=== PATIENT | female | born 1990 | race Caucasian/White ===

== ENCOUNTER 2023-03-24 14:35 | Emergency (ER) | payer OTHER ==
[2023-03-24 15:08] VITALS: BMI 22.3
[2023-03-24] MEDS ORDERED: SODIUM CHLORIDE 0.9% 500 ML INFUS.BAG IV ONE (16:22)
[2023-03-24 16:26] LABS: EPI CELLS 10 /uL (0-25.1); HYALINE CASTS 1 /uL (0-3.1); PH,URINE 6.5 (5.0-8.0); URINE APPEARANCE CLEAR; URINE BACTERIA 63 /uL (0-1359); URINE BILIRUBIN NEGATIVE (NEGATIVE); URINE COLOR YELLOW; URINE GLUCOSE (UA) NEGATIVE (NEGATIVE); URINE KETONE NEGATIVE (NEGATIVE); URINE LEUK ESTERASE 2+ (NEGATIVE); URINE NITRITE NEGATIVE (NEGATIVE); URINE PROTEIN NEGATIVE (NEGATIVE); URINE RBC 101 /uL (0-23.9); URINE UROBILINOGEN 0.2 mg/dL (0.2-1.0); URINE WBC 99 /uL (0-25.8)
[2023-03-24 16:27] LABS: HCG,QUALITATIVE URINE Positive
[2023-03-24 17:12] LABS: BASO % 0.3 % (0-2.0); EOS % 1.9 % (0-4.5); HEMATOCRIT 36.8 % (32.4-45.2); LYMPH % 13.9 % (8-40); MCHC 32.7 g/dl (32.0-36.0); MEAN CELL VOLUME 85.7 fl (80-96); MEAN PLT VOLUME 8.2 fl (7.5-11.1); MONO % 7.8 % (3.8-10.2); NEUT % 76.1 % (42.8-82.8); PLATELET COUNT 296 10^3/uL (134-434); RBC 4.29 M/mm3 (3.60-5.2); RDW 14.4 % (11.6-15.6); WHITE BLOOD COUNT 11.1 K/mm3 (4.0-10.0)
[2023-03-24 17:21] LABS: POTASSIUM 3.4 mmol/L (3.5-5.1)
[2023-03-24 17:23] LABS: BLOOD UREA NITROGEN 10.6 mg/dL (7-18)
[2023-03-24 17:24] LABS: ALBUMIN 2.8 g/dl (3.4-5.0)
[2023-03-24 17:27] LABS: CREATININE 0.6 mg/dL (0.55-1.3)
[2023-03-24 17:28] LABS: BILIRUBIN,TOTAL 0.3 mg/dL (0.2-1); TOT PROT 6.6 g/dl (6.4-8.2)
[2023-03-24 19:48] VITALS: BP 90/50; PULSE 71; RESP 18; TEMP 98.1
== END 2023-03-24 20:31 | disposition home or self-care (01) ==
LOC: JER 14:35
DX: O26.892 Other specified pregnancy related conditions, second trimester (principal); R10.30 Lower abdominal pain, unspecified; O20.9 Hemorrhage in early pregnancy, unspecified; Z3A.00 Weeks of gestation of pregnancy not specified
CPT/HCPCS: 36415; 76856-TC; 80053; 81003; 83690; 84703; 85025; 87086; 87186; 99284-25